=== PATIENT | female | born 1965 | race Hispanic/Latino ===

== ENCOUNTER 2017-06-11 07:19 | Day surgery (SDC) | payer OTHER ==
[2017-06-11 07:45] VITALS: BMI 21.6
[2017-06-11 07:59] VITALS: TEMP 98.6
[2017-06-11] MEDS ORDERED: Lidocaine 1% Inj (20ml) ONE (09:25)
[2017-06-11] MEDS ORDERED: Propofol 10 mg/ml Inj (20 ML) ONE ×2 (09:25→09:33)
[2017-06-11] MEDS ORDERED: Sodium Chloride 0.9% 1,000 ML IV SCH (09:30)
[2017-06-11 11:26] VITALS: BP 108/62; PULSE 66; RESP 15; O2SAT 100
== END 2017-06-11 11:19 | disposition home or self-care (01) ==
LOC: ENDO 07:19
PROVIDERS: ATTEND Internal Medicine Gastroenterology
DX: Z12.11 Encounter for screening for malignant neoplasm of colon (principal); K62.1 Rectal polyp; K64.8 Other hemorrhoids; Z85.038 Personal history of other malignant neoplasm of large intestine; Z98.0 Intestinal bypass and anastomosis status
CPT/HCPCS: 45380; 84703; 88305; J2704; J7040 ×2

== ENCOUNTER 2018-06-20 09:30 | Day surgery (SDC) | payer OTHER ==
[2017-10-31 14:17] VITALS: BMI 21.6
[2018-06-20] MEDS ORDERED: Propofol 10 mg/ml Inj (20 ML) ONE (12:06)
[2018-06-20] MEDS ORDERED: Lidocaine PF 2% (5 ml) Inj (For Cardiac Arrhy) ONE (12:06)
[2018-06-20 12:45] VITALS: TEMP 97.7
[2018-06-20] MEDS ORDERED: Sodium Chloride 0.9% 1,000 ML IV SCH (12:45)
[2018-06-20 14:09] VITALS: BP 101/63; PULSE 63; RESP 16; O2SAT 98
== END 2018-06-20 13:53 | disposition home or self-care (01) ==
LOC: ENDO 09:30
PROVIDERS: ATTEND Internal Medicine Gastroenterology
DX: K62.5 Hemorrhage of anus and rectum (principal); K64.8 Other hemorrhoids; Z98.0 Intestinal bypass and anastomosis status
CPT/HCPCS: 45378; J2704; J7030; J7040

== ENCOUNTER 2019-03-20 06:50 | Day surgery (SDC) | payer OTHER ==
[2017-10-31 14:17] VITALS: BMI 21.6
[2019-03-20] MEDS ORDERED: Propofol 10 mg/ml Inj (20 ML) ONE (08:51)
[2019-03-20] MEDS ORDERED: Sodium Chloride 0.9% 1,000 ML IV SCH (09:15)
[2019-03-20 09:18] VITALS: O2SAT 99
[2019-03-20 10:00] VITALS: BP 102/60; PULSE 63; RESP 16; TEMP 98.4
== END 2019-03-20 10:33 | disposition home or self-care (01) ==
LOC: ENDO 06:50
PROVIDERS: ATTEND Internal Medicine Gastroenterology
DX: C20 Malignant neoplasm of rectum (principal); K92.1 Melena; K64.8 Other hemorrhoids
CPT/HCPCS: 45380; 84703; 88305; J2001; J2704; J7030; J7040